=== PATIENT | male | born 1995 | race Caucasian/White ===

== ENCOUNTER → 2019-03-18 07:48 | Outpatient (CLI) | payer BC, SELFPAY ==
--- NOTE | 2019-03-18 08:11 | RAD_ITS ---
STUDY: X-RAY - LEFT HAND, ATTENTION FOURTH FINGER REASON FOR EXAM: Male, 24 years old. Pain following injury. TECHNIQUE: 3 view(s) of the finger were obtained. COMPARISON: None. FINDINGS: Normal metacarpal head. Normal metacarpophalangeal joint. Normal proximal phalanx. There is a 7.4 mm x 3 mm linear bony density in the ventral soft tissues underlying the base of the middle phalanx of the fourth digit. This may represent either a foreign body or avulsion fracture. Nondisplaced fracture at the base of the distal phalanx of the fourth digit. Normal proximal interphalangeal joint. Normal distal interphalangeal joint. RAD/Finger(s) Min 2 Views IMPRESSION: Nondisplaced fracture at the base of the distal phalanx of the fourth digit. 7.4 mm x 3 mm linear bony density in the ventral soft tissues underlying the base of the middle pharynx of the fourth digit. This may represent either a foreign body or avulsion fracture. Electronically Signed: Juan M Jackman, at 8:55 EDT , Service support ,
== END ==
PROVIDERS: Family Provider Dentist; PCP Dentist; Referring Provider Physician Assistant Surgical; Visit Provider Physician Assistant Surgical
DX: R52 Pain, unspecified (principal)
CPT/HCPCS: 73140

== ENCOUNTER → 2020-06-04 13:19 | Outpatient (CLI) | payer BC, SELFPAY ==
[2020-06-04 13:09] VITALS: BMI 29.7
--- NOTE | 2020-06-04 13:20 | RAD_ITS ---
STUDY: X-RAY - RIGHT TIBIA AND FIBULA REASON FOR EXAM: Male, 25 years old. Patient was hit medial low leg last week with baseball, today he was hit again in same spot and it swelled immediately TECHNIQUE: AP and lateral view(s) of the tibia and fibula were obtained. COMPARISON: None. FINDINGS: Normal visualized tibia. Normal visualized fibula. Soft tissue swelling overlying the medial aspect of the distal tibia. RAD/Tibia & Fibula 2 Views IMPRESSION: Soft tissue swelling overlying the medial aspect of the distal tibia Electronically Signed: Juan M Jackman, at 13:44 EDT , Service support ,
== END ==
PROVIDERS: PCP Dentist; Referring Provider Physician Assistant Surgical; Visit Provider Physician Assistant Surgical
DX: S89.92XA Unspecified injury of left lower leg, initial encounter (principal)
CPT/HCPCS: 73590

== ENCOUNTER → 2024-02-27 | Outpatient (CLI) | payer BC, SELFPAY ==
[2024-02-27 10:25] LABS: Anion Gap 0 (5-15); BUN 14 mg/dL (7-18); BUN/Creat Ratio 12.8 RATIO (10-20); Calcium,Total 8.9 mg/dL (8.5-10.1); Chloride 110 mmol/L (98-107); Cholesterol 183 mg/dL (200); Creatinine, Serum 1.09 mg/dL (0.70-1.30); EST Glomerular Filtration Rate 86 mL/min (>60); Est Glom Filt Rate - Afr Amer 104 mL/min (>60); Glucose 98 mg/dL (74-106); High Density Lipoprotein 71 mg/dL; Potassium 4.2 mmol/L (3.5-5.1); Sodium Level 140 mmol/L (136-145); Triglycerides 40 mg/dL; Very Low Density Lipoprotein 8 mg/dL (5-40)
== END | disposition home or self-care (01) ==
PROVIDERS: PCP Family Medicine; Referring Provider Family Medicine; Visit Provider Family Medicine
DX: Z00.00 Encounter for general adult medical examination without abnormal findings (principal)
CPT/HCPCS: 36415; 80048; 80061

== ENCOUNTER → 2024-12-22 | Outpatient (CLI) | payer BC, SELFPAY ==
--- NOTE | 2024-12-22 09:00 | RAD_ITS ---
STUDY: X-RAY - LEFT SHOULDER REASON FOR EXAM: Male, 29 years old. PAIN TECHNIQUE: 4 views of the left shoulder. COMPARISON: None. FINDINGS: Normal glenohumeral articulation. Normal acromioclavicular joint. Normal acromion. Normal humeral head and visualized proximal humerus. The soft tissue structures are unremarkable. There is no demonstrated fracture. Normal visualized pulmonary apex. RAD/Shoulder min 2 Views IMPRESSION: Normal x-ray examination of the left shoulder. Electronically Signed: Armen Joseph MD at 12:01 EST ,
--- NOTE | 2024-12-22 09:00 | RAD_ITS ---
STUDY: X-RAY - RIGHT SHOULDER REASON FOR EXAM: Male, 29 years old. PAIN TECHNIQUE: 4 views of the right shoulder. COMPARISON: None. FINDINGS: Normal glenohumeral articulation. Normal acromioclavicular joint. Normal acromion. Normal humeral head and visualized proximal humerus. The soft tissue structures are unremarkable. There is no demonstrated fracture. Normal visualized pulmonary apex. RAD/Shoulder min 2 Views IMPRESSION: Normal x-ray examination of the right shoulder. Electronically Signed: Armen Joseph MD at 12:00 EST ,
== END | disposition home or self-care (01) ==
LOC: MTRAD 08:26
PROVIDERS: PCP Family Medicine; Referring Provider Family Medicine; Visit Provider Family Medicine
DX: M25.511 Pain in right shoulder (principal); M25.512 Pain in left shoulder
CPT/HCPCS: 73030

== ENCOUNTER 2025-02-10 07:00 | Outpatient (RCR) | payer BC, SELFPAY ==
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
== END 2025-02-10 19:00 | disposition home or self-care (01) ==
LOC: PT 07:00
PROVIDERS: PCP Family Medicine; Referring Provider Family Medicine; Visit Provider Family Medicine
DX: M25.519 Pain in unspecified shoulder (principal)
CPT/HCPCS: 97110; 97162; 97530